=== PATIENT | male | born 1995 | race Two or more races ===

== ENCOUNTER 2024-08-10 21:06 | Emergency (ER) | payer SELFPAY ==
[2024-08-10 21:07] VITALS: BMI 22.8
[2024-08-10 21:18] VITALS: BP 121/69; PULSE 61; RESP 18; TEMP 36.4; O2SAT 96
[2024-08-10] MEDS: FLUORESCEIN-BENOXIN 0.3%-0.4% 1 DROP BOTH EYES (22:22)
--- NOTE | 2024-08-11 03:46 | EDNOTE_ITS ---
<Statement entered by Nat Morales MD - 08/22/24 21:13> As co-signing physician, I was present and available for consult prn. I concur with the plan and care as documented by the midlevel provider. ED Eye Problem RME/HPI General Chief complaint: Eye Problems Stated complaint: PESTICIDE GOT INTO RIGHT EYE 4 HOURS AGO Time Seen by Provider: 08/10/24 21:55 Arrival date/time: 08/10/24 21:06 29M with no significant PMH presents to ED with R eye irritation after he accidentally got some pesticide into it. Patient denies vision changes. Limitations: no limitations Related Data Previous Rx's ?Medication ?Instructions ?Recorded erythromycin 5 mg/gram (0.5 %) eye 0.5 inch ophthalmic (eye) QID #3.5 08/10/24 ointment grams Allergies Allergy/AdvReac Type Severity Reaction Status Date / Time No Known Allergies Allergy Verified 08/10/24 21:07 Review of Systems Review of Systems Systems Reviewed: All systems reviewed, normal except as documented Constitutional Constitutional: Reports system reviewed and no additional complaints, except as documented, Denies fever(s) and Denies headache(s) Eyes Eyes: Reports as per HPI and Reports irritation ENT Ears, Nose, Mouth, and Throat: Denies disequilibrium and Denies headache(s) Cardiovascular Cardiovascular: Reports system reviewed and no additional complaints, except as documented, Denies chest pain and Denies dyspnea Respiratory Respiratory: Reports system reviewed and no additional complaints, except as documented, Denies cough and Denies dyspnea Gastrointestinal Gastrointestinal: Reports system reviewed and no additional complaints, except as documented, Denies abdominal pain, Denies nausea and Denies vomiting Neurologic Neurologic: Reports system reviewed and no additional complaints, except as documented, Denies confusion, Denies disequilibrium and Denies headache(s) Psychiatric Psychiatric: Denies confusion Past Medical History Social History SMOKING STATUS: Never smoker ED Exam General Limitations: Present no limitations General appearance: Present alert and in no apparent distress Head Head exam: Present atraumatic Eye Eye exam: Present normal appearance, PERRL and EOMI ENT ENT exam: Present normal exam, normal oropharynx and mucous membranes moist Neck Neck exam: Present normal inspection, full ROM and trachea midline Chest Chest inspection: Present normal inspection and symmetric chest wall rise Respiratory Respiratory exam: Present normal lung sounds bilaterally Cardiovascular Cardiovascular exam: Present regular rate, normal rhythm and normal heart sounds Abdominal Exam Abdominal exam: Present soft and normal bowel sounds Extremities Exam Extremities exam: Present normal inspection and full ROM Back Exam Back exam: Present normal inspection and full ROM Neurological Exam Neurological exam: Present alert, oriented X3 and CN II-XII intact Psychiatric Psychiatric exam: Present normal affect and normal mood Skin Skin exam: Present warm, dry, intact and normal color Course Quality Measures none Orders Category Date Time Status Gomez Lamp to Bedside X1 Care 08/10/24 21:56 Completed Fluorescein-Benoxin 0.3%-0.4% Med 08/10/24 21:59 Discontinued 1 drop BOTH EYES X1 ONE Vital Signs Vital signs: Vital Signs Temperature 97.5 F 08/10/24 21:18 Pulse Rate 61 08/10/24 21:18 Respiratory Rate 18 08/10/24 21:18 Blood Pressure 121/69 08/10/24 21:18 Pulse Oximetry (%) 96 08/10/24 21:18 Oxygen Delivery Method Room Air 08/10/24 21:18 O2 at 96% on RA and WNLs Eye MDM Narrative MDM Narrative:: 29M with no significant PMH presents to ED with R eye irritation after he accidentally got some pesticide into it. Patient denies vision changes. Physical exam reveals normal pupil response and EOM. No gross conjunctivitis. Patient is afebrile, calm, and alert. Wood's lamp exam unremarkable. Will give ABX prophylaxis. Patient data External records reviewed:: None Clinical information provided by:: patient Social determinants that could affect healthcare access:: none Patient has the following chronic illnesses:: none How is presenting disease/condition affected by chronic disease/condition?: no chronic disease Evaluation data The following diagnostics were reviewed and interpreted by me:: other (specify) (none) Lab and/or radiology exams considered but not ordered:: not ordered Interpretation Summary: n/a Medications / Prescriptions Medications or Prescriptions considered but not ordered:: ordered Medication administrations:: Medication Administration History Discontinued Medications Fluorescein Sodium/Benoxinate HCl (Fluorescein-Benoxin 0.3%-0.4% 1 Drop) 1 drop BOTH EYES X1 ONE Stop: 08/10/24 22:00 Last Admin: 08/10/24 22:22 Dose: 1 drop Documented By: OA above Consultations Consultation(s) initiated? (list below): No Diagnosis Eye Problem Differential Diagnosis: corneal abrasion, conjunctivitis, acute iritis, hyphema, periorbital cellulitis, subconjunctival hemorrhage, glaucoma, corneal ulcer, ruptured globe and other (chemical exposure of eye) Most likely diagnosis given after review of the tests above:: chemical exposure of eye Admission Indicated Admission indicated?: not indicated Admission Request Was there a request for admission?: No Disposition Plan Disposition Plan: Discharge Discharge Attestation Discharge Attestation: The patient and all family members were given an opportunity to ask questions and understood the discharge instructions. Discharge instructions specifically effects, indications for sooner follow up or return to the emergency department, and the expected course of current diagnosis. Patient condition: Stable Discharge Plan Plan Patient Disposition: HOME (Self Care) Discharge Disposition comment: Stable Prescriptions/Referrals Prescriptions/Med Rec: New erythromycin 5 mg/gram (0.5 %) ointment 0.5 inch ophthalmic (eye) QID Qty: 3.5 0RF Referrals: No Primary/Family,Physician [Primary Care Provider] - In 1 week Problem List Clinical Impression: Chemical exposure of eye Patient/Caregiver Discharge Instructions Education Materials: ED Eye Exposure, Chemical Additional Instructions: Please follow-up with PCP within 24-48 hours and return immediately if symptoms worsen. See eye doctor in a few days. Print Language: Armenian Stand Alone Forms: Patient Portal Info Letter LAUREEN/ROLA Supervising Physician LAUREEN/ROLA Supervising Physician: Dr. Morales
== END 2024-08-10 23:14 | disposition home or self-care (01) ==
PROVIDERS: Emergency Provider Emergency Medicine
DX: Z77.098 Contact with and (suspected) exposure to other hazardous, chiefly nonmedicinal, chemicals (principal)
CPT/HCPCS: 99283; Z7110; Z7610